=== PATIENT | male | born 1965 | race Caucasian/White ===

== ENCOUNTER 2020-02-09 10:58 | Emergency (ER) | payer BC ==
[~2020-02-09] VITALS: Ht 185.4 cm; Wt 95.3 kg
[2020-02-09 11:30] VITALS: BP_SYST 139
[2020-02-09] MEDS ORDERED: LIDOCAINE 1%, 20 ML MDV 20 ML ONE (12:22)
[2020-02-09 20:14] VITALS: BP_SYST 139
== END 2020-02-09 13:20 | disposition home or self-care (01) ==
LOC: SED 10:58
DX: S61.215A Laceration without foreign body of left ring finger without damage to nail, initial encounter (principal); W45.8XXA Other foreign body or object entering through skin, initial encounter; Y93.89 Activity, other specified; Y92.89 Other specified places as the place of occurrence of the external cause; Y99.8 Other external cause status
CPT/HCPCS: 12001; 99283; J2001

== ENCOUNTER 2020-05-26 14:14 | Emergency (ER) | payer BC ==
[~2020-05-26] VITALS: Ht 182.9 cm; Wt 95.3 kg
[2020-05-26 14:15] VITALS: BP_SYST 166
--- NOTE | 2020-05-26 14:15 | NUR ---
BROUGHT BACK TO BED #7 AND TRIAGED. REPORT GIVEN TO SHARAN
--- NOTE | 2020-05-26 14:20 | NUR ---
Patient presented to ER C/O MECHANICAL SLIP & FALL. Patient ambulatory to ER, afebrile, skin pink, bleeding controlled approx. 3.5 cm laceration to left brow, pain 6/10, denies N/V/D. Patient states he had slip & fall at home doing yard work. PT states he fell forward into trash can hitting head, PT denies KO.
--- NOTE | 2020-05-26 14:25 | NUR ---
Patient has a 3.5 cm laceration to left brow. Site cleansed with sterile NS & iodine. No bleeding noted. Pt tolerated well.
--- NOTE | 2020-05-26 14:44 | NUR ---
DR DANGELO AT BEDSIDE FOR EVALUATION
--- NOTE | 2020-05-26 15:01 | NUR ---
MIRELLA Galindo examining patient.
[2020-05-26 15:49] VITALS: BP_SYST 159
--- NOTE | 2020-05-26 15:49 | NUR ---
Patient given written and verbal discharge instructions and verbalizes understanding. ER MD discussed with patient the results and treatment provided. Patient in stable condition. ID arm band removed. No Rx given. Patient educated on pain management and to follow up with PMD. Pain Scale 3/10. Opportunity for questions provided and answered. Medication side effect fact sheet provided.
== END 2020-05-26 15:49 | disposition home or self-care (01) ==
LOC: SED 14:14
DX: S01.81XA Laceration without foreign body of other part of head, initial encounter (principal); W45.8XXA Other foreign body or object entering through skin, initial encounter; Y93.89 Activity, other specified; Y92.89 Other specified places as the place of occurrence of the external cause; Y99.8 Other external cause status
CPT/HCPCS: 99282